=== PATIENT | female | born 1980 | race Caucasian/White ===

== ENCOUNTER 2016-04-17 12:28 | Inpatient (IN) | payer BC, OTHER ==
[2016-04-17] MEDS ORDERED: METHYLERGONOVINE 0.2 MG/ML 1 ML AMP IM PRN (12:52)
[2016-04-17] MEDS ORDERED: TERBUTALINE 1 MG/ML VIAL SQ PRN (12:52)
[2016-04-17] MEDS ORDERED: OXYTOCIN 10 UNIT/ML 1 ML VIAL IM PRN (12:52)
[2016-04-17] MEDS ORDERED: LIDOCAINE 1% (PF) 10 MG/ML (30 ML SDV) SQ PRN (12:52)
[2016-04-17] MEDS ORDERED: CARBOPROST TROMETHAMINE 250 MCG/ML 1 ML AMP IM PRN (12:52)
[2016-04-17] MEDS ORDERED: AMPICILLIN 2,000 MG in SODIUM CHLORIDE 0.9% 100 ML IVPB STA (12:52)
[2016-04-17 13:16] VITALS: BMI 29.6
[2016-04-17] MEDS: LACTATED RINGERS 1,000 ML IV SCH ×2 (13:18→14:05)
[2016-04-17 13:29] LABS: Anisocytosis Slight; Basophils # (A) 0.1 k/uL (0-0.2); Basophils % (A) 1 %; CH 19.8; CHCM 30.4; Eosinophils # (A) 0.1 k/uL (0-0.7); Eosinophils % (A) 1 %; HCT 29.1 % (34.0-46.0); HDW 4.19; HGB 8.6 gm/dL (11.4-16.0); Hypochromasia Marked; Luc # (Auto) 0.18; Luc % (Auto) 2; Lymphocytes # (A) 1.1 k/uL (1.0-4.8); Lymphocytes % (A) 14 %; MCH 19.5 pg (25.0-35.0); MCHC 29.6 g/dL (31.0-37.0); Microcytosis Marked; Monocytes # (A) 0.6 k/uL (0-1.0); Monocytes % (A) 8 %; Neutrophils # (A) 5.8 k/uL (1.3-7.7); Neutrophils % (A) 74 %; Poikilocytosis Moderate; RBC 4.43 m/uL (3.80-5.40); RDW 17.7 % (11.5-15.5); WBC 7.8 k/uL (3.8-10.6); WBC (Perox) 7.76
[2016-04-17 13:46] LABS: MCV 65.8 fL (80.0-100.0)
[2016-04-17] MEDS ORDERED: fentaNYL (PF) 50 MCG/ML 5 ML AMP ONE (14:08)
[2016-04-17] MEDS ORDERED: BUPIVACAINE (PF) 0.25% 30 ML VIAL ONE (14:08)
[2016-04-17] MEDS ORDERED: SODIUM CHLORIDE 0.9% 100 ML BAG ONE (14:08)
[2016-04-17] MEDS ORDERED: HYDROCORTISONE 2.5% RECTAL CREAM 30 GM TUBE RECTAL PRN (15:09)
[2016-04-17] MEDS ORDERED: SIMETHICONE 80 MG CHEWABLE PO PRN (15:09)
[2016-04-17] MEDS ORDERED: diphenhydrAMINE 50 MG CAP PO PRN (15:09)
[2016-04-17] MEDS ORDERED: diphenhydrAMINE 25 MG CAP PO PRN (15:09)
[2016-04-17] MEDS ORDERED: ACETAMINOPHEN TAB 325 MG TAB PO PRN (15:09)
[2016-04-17] MEDS ORDERED: ZOLPIDEM 5 MG TAB PO PRN (15:09)
[2016-04-17] MEDS ORDERED: BENZOCAINE/MENTHOL SPRAY 1 GM/SPRAY AEROSOL TOPICAL PRN (15:09)
[2016-04-17] MEDS ORDERED: diphenhydrAMINE 50 MG/ML 1 ML VIAL IVP PRN ×2 (15:09)
[2016-04-17] MEDS ORDERED: WITCH HAZEL 1 EACH MED..PAD TOPICAL PRN (15:09)
[2016-04-17] MEDS: OXYTOCIN 30 UNITS/500 ML NS 30 UNIT in SALINE 1 500ML.BAG IV SCH (15:55)
[2016-04-17] MEDS ORDERED: BUPIVACAINE (PF) 0.25% 25 ML, fentaNYL (PF) 200 MCG in SODIUM CHLORIDE 0.9% 71 ML EPIDURAL ONE (16:01)
--- NOTE | 2016-04-17 17:17 | P.HPOB ---
History of Present Illness H&P Date: 04/17/16 Chief Complaint: Intrauterine at term Patient is a 35-year-old at 38 weeks gestation arise in active labor. She is vahid every 2-3 minutes and dilated to 6 cm. Her course otherwise was unremarkable. She did fail her 1 hour Glucola screen but did pass her 3 hour. heart tones are noted to be in the 140s and reactive QUESTIONS are answered for her. She is positive for GBS and prophylaxis has been initiated. Pertinent labs include A+ blood type and Rh antibody screen was negative. Rubella is immune hepatitis B surface antigen and RPR were negative. Past Medical History Past Medical History: No Reported History History of Any Multi-Drug Resistant Organisms: None Reported Past Surgical History: No Surgical Hx Reported Additional Past Surgical History / Comment(s): rt arm broken when 7 y.o. Past Anesthesia/Blood Transfusion Reactions: No Reported Reaction Past Psychological History: No Psychological Hx Reported Smoking Status: Never smoker Past Drug Use History: None Reported - Past Family History Mother History Unknown: Yes Family Medical History: Hypertension Medications and Allergies Home Medications Medication Instructions Recorded Confirmed Type Pnv with Ca,No.72/Iron/FA 1 tab PO DAILY 04/17/16 04/17/16 History [ Plus Tablet] Allergies Allergy/AdvReac Type Severity Reaction Status Date / Time magnesium Allergy Anaphylaxis Verified 04/17/16 12:49 Exam Osteopathic Statement: *. No significant issues noted on an osteopathic structural exam other than those noted in the History and Physical/Consult. - Vital Signs Vital signs: Vital Signs Temp Pulse Resp BP 04/17/16 16:20 90 18 111/78 04/17/16 15:51 85 16 104/57 04/17/16 15:36 96 16 106/60 04/17/16 15:21 99 16 100/59 04/17/16 15:06 117 H 18 115/54 04/17/16 14:51 97.0 F L 114 H 18 119/56 04/17/16 13:00 97.1 F L 112 H 18 118/79 Intake and Output 04/17/16 04/17/16 04/17/16 06:59 14:59 22:59 Intake Total 1999 Balance 1999 Intake: IV 1500 Lactated Ringers 1,000 ml 1500 @ 125 mls/hr IV .Q8H SAYRA Rx#:[id number] Intake, IV Titration 500 Amount Oxytocin 30 Units/500 ml 500 Ns 30 unit In Saline 1 500ml.bag @ 120 MILLIUNIT /MIN 120 mls/hr IV . Q4H10M SAYRA Rx#:[id number] Other: # Voids 0 # Bowel Movements 0 Weight 71.214 kg Patient Weight 04/18/16 06:59 Weight 71.214 kg - OBG Physical Exam Breast: both: normal (no masses) Abdomen: bowel sounds normal, no diffuse tenderness, no bruit present, no guarding noted, no hepatomegaly, no splenomegaly, no mass Vulva: both: normal Vagina: normal moisture, no discharge Cervix: no lesion, no discharge Uterus: normal size, normal contour Adnexa: both: normal Anus/Rectum: normal perianal skin, no rectal mass, no hemorrhoids, heme negative Results Result Diagrams: 04/17/16 13:00 Abnormal Lab Results - Last 24 Hours (Table) 04/17/16 Range/Units 13:00 Hgb 8.6 L (11.4-16.0) gm/dL Hct 29.1 L (34.0-46.0) % MCV 65.8 L D (80.0-100.0) fL MCH 19.5 L (25.0-35.0) pg MCHC 29.6 L (31.0-37.0) g/dL RDW 17.7 H (11.5-15.5) %
--- NOTE | 2016-04-17 17:18 | P.PROBDLV ---
Vaginal Delivery Note - . Vaginal Delivery Note: Patient progressed complete and pushing with spontaneous vaginal delivery of a viable male over an intact perineum. Following delivery of the head from left occiput anterior position anterior posterior shoulders were delivered gentle downward upper traction followed by the remainder the baby. Mouth nares were then bulb suctioned and baby was placed on mother's abdomen where the umbilical cord was clamped and cut in usual fashion. Placenta was then delivered intact Pitocin was added to the IV. scores were 8 and 9 at one and 5 minutes respectively and the weight was 8 lbs. 5 oz. Following delivery both mother and baby appear stable.
[2016-04-17] MEDS: AMPICILLIN 1,000 MG in SODIUM CHLORIDE 0.9% 50 ML IVPB SCH (17:31)
[2016-04-17] MEDS: SENNOSIDES-DOCUSATE SODIUM 1 EACH TAB PO SCH (20:09)
[2016-04-18] MEDS: IBUPROFEN 600 MG TAB PO PRN ×2 (06:07→12:38)
[2016-04-18 08:27] LABS: Anisocytosis Slight; Basophils % (A) 0 %; CH 19.2; CHCM 28.5; Eosinophils # (A) 0.1 k/uL (0-0.7); Eosinophils % (A) 1 %; HCT 26.7 % (34.0-46.0); HDW 3.92; HGB 7.8 gm/dL (11.4-16.0); Hypochromasia Marked; Luc # (Auto) 0.22; Luc % (Auto) 2; Lymphocytes # (A) 1.1 k/uL (1.0-4.8); Lymphocytes % (A) 11 %; MCH 19.9 pg (25.0-35.0); MCHC 29.2 g/dL (31.0-37.0); MCV 68.1 fL (80.0-100.0); Mean Platelet Volume 6.7; Microcytosis Marked; Monocytes # (A) 0.6 k/uL (0-1.0); Monocytes % (A) 6 %; Neutrophils # (A) 8.2 k/uL (1.3-7.7); Neutrophils % (A) 80 %; Poikilocytosis Slight; RBC 3.92 m/uL (3.80-5.40); RDW 17.2 % (11.5-15.5); WBC 10.1 k/uL (3.8-10.6); WBC (Perox) 10.63
--- NOTE | 2016-04-18 08:53 | P.PNOBGVD ---
Subjective - Subjective Principal diagnosis: day 1 Interval history: Overall doing very well. She is ambulating, voiding, and tolerating her diet. Patient reports: Reports appetite normal, Reports voiding normally, Reports pain well controlled, Reports ambulating normally : doing well Objective - Latest Vital Signs Latest vital signs: Vital Signs Temp Pulse Resp BP 04/18/16 00:00 98.2 F 91 16 121/75 04/17/16 20:00 98.2 F 102 H 16 123/69 04/17/16 16:51 97.5 F L 86 16 107/64 04/17/16 16:20 90 18 111/78 04/17/16 15:51 85 16 104/57 04/17/16 15:36 96 16 106/60 04/17/16 15:21 99 16 100/59 04/17/16 15:06 117 H 18 115/54 04/17/16 14:51 97.0 F L 114 H 18 119/56 04/17/16 13:00 97.1 F L 112 H 18 118/79 Intake and Output 04/17/16 04/18/16 04/18/16 22:59 06:59 14:59 Intake Total 1999 Balance 1999 Intake: IV 1500 Lactated Ringers 1,000 ml 1500 @ 125 mls/hr IV .Q8H SAYRA Rx#:[id number] Intake, IV Titration 500 Amount Oxytocin 30 Units/500 ml 500 Ns 30 unit In Saline 1 500ml.bag @ 120 MILLIUNIT /MIN 120 mls/hr IV . Q4H10M SAYRA Rx#:[id number] Other: # Voids 1 2 1 # Bowel Movements 0 - Exam Lungs: bilateral: normal Chest: Normal S1, Normal S2 Extremities: Present: normal Abdomen: Present: normal appearance, soft Uterus: Present: normal, firm - Labs Labs: Abnormal Lab Results - Last 24 Hours (Table) 04/17/16 04/18/16 Range/Units 13:00 07:58 Hgb 8.6 L 7.8 L (11.4-16.0) gm/dL Hct 29.1 L 26.7 L (34.0-46.0) % MCV 65.8 L D 68.1 L (80.0-100.0) fL MCH 19.5 L 19.9 L (25.0-35.0) pg MCHC 29.6 L 29.2 L (31.0-37.0) g/dL RDW 17.7 H 17.2 H (11.5-15.5) % Neutrophils # 8.2 H (1.3-7.7) k/uL
[2016-04-18] MEDS: SENNOSIDES-DOCUSATE SODIUM 1 EACH TAB PO SCH (12:39)
[2016-04-18] MEDS: LACTATED RINGERS 1,000 ML IV SCH (19:39)
[2016-04-18] MEDS: OXYTOCIN 30 UNITS/500 ML NS 30 UNIT in SALINE 1 500ML.BAG IV SCH ×2 (19:39→19:40)
[2016-04-18] MEDS: AMPICILLIN 1,000 MG in SODIUM CHLORIDE 0.9% 50 ML IVPB SCH (19:39)
[2016-04-19] MEDS: IBUPROFEN 600 MG TAB PO PRN ×2 (00:09→13:18)
[2016-04-19] MEDS: SENNOSIDES-DOCUSATE SODIUM 1 EACH TAB PO SCH ×2 (00:09→08:20)
[2016-04-19 08:20] VITALS: BP 103/61; PULSE 83; RESP 16; TEMP 98.2
--- NOTE | 2016-04-19 08:55 | P.DS ---
Providers Date of admission: 04/17/16 12:46 Expected date of discharge: 04/19/16 Attending physician: Vance Recinos [facility] Course: Patient is doing very well day 2. She is ambulating, voiding and she is tolerating her diet. She voices no complaint. Vital signs are stable and afebrile. Heart regular, lungs clear, extremities without pain. Abdomen is soft uterus is firm below the umbilicus and lochia is reported be light. Assessment postop day 2. Plan discharged home follow me in 6 weeks. Today's discharge instructions were all reviewed and all questions are answered for her prior to her discharge she is stable for discharge this time. A prescription for Motrin has been provided Patient Condition at Discharge: Good Plan - Discharge Summary New Discharge Prescriptions: Ibuprofen [Motrin] 600 mg PO Q6HR PRN #30 tab PRN Reason: Pain Discharge Medication List Pnv with Ca,No.72/Iron/FA [ Plus Tablet] 1 tab PO DAILY 04/17/16 [ History] Ibuprofen [Motrin] 600 mg PO Q6HR PRN #30 tab 04/19/16 [Rx] Follow up Appointment(s)/Referral(s): Vance Recinos DO [Doctor of Osteopathic Medicine] - 6 Weeks Activity/Diet/Wound Care/Special Instructions: No heavy lifting limited stairs and driving and pelvic rest. If any high temperatures, heavy bleeding, or severe pain call my office Discharge Disposition: HOME SELF-CARE
== END 2016-04-19 14:00 | disposition home or self-care (01) | DRG 775 ==
LOC: FBPOP 12:28 → 4FBP 12:46
PROVIDERS: ADMIT Obstetrics & Gynecology; ATTEND Obstetrics & Gynecology
PROC: 10E0XZZ Delivery of Products of Conception, External Approach (ICD-10-PCS; principal; 2016-04-17)
DX: O99.824 Streptococcus B carrier state complicating childbirth (principal); Z37.0 Single live birth; Z3A.38 38 weeks gestation of pregnancy; Z79.899 Other long term (current) drug therapy
CPT/HCPCS: 85025; 88307

== ENCOUNTER 2019-12-15 18:02 | Emergency (ER) | payer BC, OTHER ==
--- NOTE | 2019-12-15 19:24 | XR ---
EXAMINATION TYPE: XR wrist complete RT DATE OF EXAM: 12/15/2019 COMPARISON: NONE HISTORY: Pain TECHNIQUE: 4 views FINDINGS: Carpal bones are intact. Metacarpals appear intact. I see no fracture nor dislocation. Join t spaces are normal. Scaphoid appears normal. IMPRESSION: Negative right wrist exam. No fracture.
--- NOTE | 2019-12-15 19:42 | ED ---
Upper Extremity HPI - General Chief Complaint: Extremity Injury, Upper Stated Complaint: fall from 1 step, 24wks preg Time Seen by Provider: 12/15/19 18:19 Source: patient Mode of arrival: ambulatory Limitations: no limitations - History of Present Illness Initial Comments: 3-year-old female presents the ER today for complaints of left wrist pain. Renay ent reports she tripped down one step and landed with her wrist hitting her daughter's bike at the end of the step. Patient complains of swelling and pain over the distal ulna. She states that she has no other injury. She is also 24 weeks and this seventh child. She reports that she had no abdominal trauma feels the baby moving. No vaginal bleeding or fluid discharge. - Related Data Home Medications Medication Instructions Recorded Confirmed Pnv,Calcium 72/Iron/Folic Acid 1 tab PO DAILY 04/17/16 04/17/16 [ Plus Tablet] Previous Rx's Medication Instructions Recorded Ibuprofen [Motrin] 600 mg PO Q6HR PRN #30 tab 04/19/16 Allergies Allergy/AdvReac Type Severity Reaction Status Date / Time magnesium Allergy Anaphylaxis Verified 12/15/19 18:14 Review of Systems ROS Statement: Those systems with pertinent positive or pertinent negative responses have been documented in the HPI. ROS Other: All systems not noted in ROS Statement are negative. Past Medical History Past Medical History: No Reported History History of Any Multi-Drug Resistant Organisms: None Reported Past Surgical History: Orthopedic Surgery Additional Past Surgical History / Comment(s): rt arm broken when 7 y.o. Past Anesthesia/Blood Transfusion Reactions: No Reported Reaction Past Psychological History: No Psychological Hx Reported Smoking Status: Never smoker Past Alcohol Use History: None Reported Past Drug Use History: None Reported - Past Family History Mother History Unknown: Yes Family Medical History: Hypertension General Exam - General Exam Comments Initial Comments: 39-year-old female. Alert and oriented. No distress. Limitations: no limitations General appearance: alert, in no apparent distress Head exam: Present: atraumatic Eye exam: Present: normal appearance, PERRL, EOMI. Absent: scleral icterus, conjunctival injection, periorbital swelling ENT exam: Present: normal exam, mucous membranes moist Neck exam: Present: normal inspection. Absent: tenderness, meningismus, lymphadenopathy Respiratory exam: Present: normal lung sounds bilaterally. Absent: respiratory distress, wheezes, rales, rhonchi, stridor Cardiovascular Exam: Present: regular rate, normal rhythm, normal heart sounds. Absent: systolic murmur, diastolic murmur, rubs, gallop, clicks GI/Abdominal exam: Present: soft, normal bowel sounds, other (Set of abdomen consistent with 24 weeks .). Absent: distended, tenderness, guarding, rebound, rigid Left Elbow exam: Present: normal inspection, full ROM Forearm Wrist exam: Present: full ROM, tenderness, swelling, other (Patient is swelling over the distal ulna. She does have full range of motion. Radial pulses 2+. Capillary refills less than 2 seconds. Normal sensation to light touch over hand and wrist.). Absent: normal inspection Neuro motor exam: Present: wrist extension intact, thumb opposition intact, thumb IP flexion intact, thumb adduction intact, fingers 2-5 abduction intact Vascular: Present: normal capillary refill Back exam: Present: normal inspection Neurological exam: Present: alert, oriented X3, CN II-XII intact Psychiatric exam: Present: normal affect, normal mood Skin exam: Present: warm, dry, intact, normal color. Absent: rash Course Vital Signs 12/15/19 12/15/19 18:11 20:10 Temperature 98.5 F 97.8 F Pulse Rate 99 76 Respiratory 18 12 Rate Blood Pressure 119/76 113/70 O2 Sat by Pulse 100 98 Oximetry Procedures - Orthopedic Splinting/Casting Injury #1 Side: right Upper Extremity Injury Location: wrist Upper Extremity Immobilizer: ulnar gutter, Mina wrap, synthetic pre-padded splint Medical Decision Making - Medical Decision Making 3-year-old female presents with left wrist pain after falling down one step. She'll 24 weeks but denies any abdominal pain vaginal bleeding and feels baby moving well. Patient's wrist x-ray was reviewed negative for fracture. She does have swelling over the distal ulna. No snuffbox tenderness. Patient was placed in an ulnar gutter splint to help with immobilization. I discussed that she can follow-up with orthopedic symptoms to persist but to remain in splint for a few days and take it off to reassess patient's pain. Patient is agreeable to plan will comply. Return parameters were discussed. - Radiology Data Radiology results: report reviewed Negative right wrist exam. No fracture. Disposition Clinical Impression: Wrist sprain Disposition: HOME SELF-CARE Condition: Good Instructions (If sedation given, give patient instructions): Wrist Injury (ED) Additional Instructions: Patient is a rest ice and elevate the wrist. Patient to follow up with orthopedics if symptoms continue to persist after a few days of Tylenol for pain and remaining in the splint. Return to the ED if any alarming signs or symptom s occur. Is patient prescribed a controlled substance at d/c from ED?: No Referrals: Denzel Vigil MD [Primary Care Provider] - 1-2 days Damien Sparks DO [Doctor of Osteopathic Medicine] - 1-2 days Time of Disposition: 19:42
[2019-12-15 20:12] VITALS: BP 113/70; PULSE 76; RESP 12; TEMP 97.8
== END 2019-12-15 20:19 | disposition home or self-care (01) ==
LOC: EC 18:02
DX: O9A.212 Injury, poisoning and certain other consequences of external causes complicating pregnancy, second trimester (principal); S63.502A Unspecified sprain of left wrist, initial encounter; Z3A.24 24 weeks gestation of pregnancy; Z88.8 Allergy status to other drugs, medicaments and biological substances; W10.8XXA Fall (on) (from) other stairs and steps, initial encounter; Y92.89 Other specified places as the place of occurrence of the external cause
CPT/HCPCS: 99283

== ENCOUNTER 2020-01-31 17:44 | Outpatient (CLI) | payer BC, OTHER ==
--- NOTE | 2020-01-31 19:04 | US ---
EXAMINATION TYPE: US OB >= 14 wk fetus DATE OF EXAM: 01/31/2020 COMPARISON: None CLINICAL HISTORY: decreased movement, unable to detect tones TECHNIQUE: Transabdominal (TA) GESTATIONAL AGE / DATING Physician Established: (31 weeks/3 days) EDC: 03/31/2020 Dates by LMP: (31 weeks/3 days) EDC: 03/31/2020 Dates by First Scan: No previous this is first scan Dates by Current Scan: (31 weeks/2 days) SURVEY IUP: Single PLACENTA: Anterior PREVIA: No Previa AUGUSTINA: 16.4 cm Normal CERVICAL LENGTH (transabdominal: norm > 3.0cm): 4.3 cm BIOMETRY PRESENTATION: Breech BPD: 7.9 cm 31 weeks / 6 days HC: 28.9 cm 30 weeks / 4 days AC: 27.8 cm 31 weeks / 6 days FL: 6.3 cm 32 weeks / 3 days ESTIMATED WEIGHT IN GRAMS: 1856 grams ESTIMATED WEIGHT IN LBS/OZ: 4 lbs. 1 oz. WEIGHT PERCENTAGE BASED ON ESTABLISHED DATES: 53% HC/AC: 1.0 Normal FL/AC: 22.5 Normal HEART RATE: not detected bpm RHYTHM: not detected No heart tones detected. IMPRESSION: There is intrauterine demise at approximately 31 weeks gestation.
[2020-01-31 19:14] VITALS: BP 113/70; PULSE 125; RESP 17; TEMP 97.5
--- NOTE | 2020-01-31 19:30 | P.MSEPDOC ---
Presenting Problems - Arrival Data Date of Arrival on Unit: 01/31/20 Time of Arrival on Unit: 17:44 Mode of Transport: Ambulatory - Complaint OB-Reason for Admission/Chief Complaint: Decreased Movement Comment: pt reports movement last at 1100 today, reports hx of anemia with and is scheduled for iron infusion 02-02 Medical History - Information : 7 Para: 6 Term: 6 : 0 Abortions: Spontaneous or Elective: 0 Number of Living Children: 6 - Gestational Age Gestational Age by CHUCHO (wks/days): 31 Weeks and 3 Days Review of Systems - Review of Systems Constitutional: No problems Breast: No problems ENT: No problems Cardiovascular: No problems Respiratory: No problems Gastrointestinal: No problems Genitourinary: No problems Musculoskeletal: No problems Neurological: No problems Skin: No problems Vital Signs - Temperature Temperature: 97.5 F Temperature Source: Temporal Artery Scan - Pulse Right Brachial Pulse Rate: 125 Pulse Assessment Method: Automatic Cuff - Respirations Respiratory Rate: 17 Oxygen Delivery Method: Room Air - Blood Pressure Right Arm Blood Pressure: 113/70 Blood Pressure Mean: 84 Blood Pressure Source: Automatic Cuff Medical Screen Scoring (Pre) - Cervical Exam Dilation: Exam Deferred Effacement: Exam Deferred Membranes: Intact - Uterine Contractions Frequency: N/A Duration: N/A Intensity: N/A - Maternal Vital Signs Maternal Temperature: N/A Maternal Blood Pressure: N/A Signs of Preeclampsia: N/A Maternal Respirations: N/A - Maternal Trauma Maternal Trauma: N/A - Assessment - Baby A NST: Unable to detect FHT's = 10 - Total Score - Baby A Total Score - Baby A: 10 - Total Score - Baby B Total Score - Baby B: 0 - Total Score - Baby C Total Score - Baby C: 0 - Level of Risk - Baby A Level of Risk - Baby A: High (10+) - Level of Risk - Baby B Level of Risk - Baby B: Low (0-5) - Level of Risk - Baby C Level of Risk - Baby C: Low (0-5) Physician Notification (Pre) - Physician Notified Physician Notified Date: 01/31/20 Physician Notified Time: 18:08 New Order Received: Yes (stat u/s) - Notification Comment Comment: Dr Lay on way into to assess pt Disposition - Disposition OB Disposition: Observe, Triage I agree with the RN Medical Screening Exam: Yes Risk & Benefit of care provided described in d/c instruction: Yes Diagnosis: MATERNAL CARE FOR INTRAUTERINE , FETUS 1 (Patient called me with complaints of decreased movement. Patient was instructed to come to labor and delivery for evaluation. Patient is a pleasant 39-year-old 7 para 6 female 31-1/2 weeks gestation. has been complicated by severe anemia for which she is seen a car icer. Evaluation of labor and delivery was consistent with an intrauterine demise at 31 weeks. Discussed delivery at this time versus coming back tomorrow on proceeding with induction. Patient wishes to go home today with her family this evening and tomorrow and return tomorrow night for Cervidil placement. I did instruct her to call me if she had any vaginal bleeding or concerns.)
== END 2020-01-31 19:28 | disposition home or self-care (01) ==
LOC: FBPOP 17:44
PROVIDERS: ATTEND Obstetrics & Gynecology
DX: O36.4XX0 Maternal care for intrauterine death, not applicable or unspecified (principal); Z3A.31 31 weeks gestation of pregnancy
CPT/HCPCS: 76805; 99213

== ENCOUNTER 2020-02-01 06:47 | Inpatient (IN) | payer BC, OTHER ==
--- NOTE | 2020-02-01 07:58 | P.HPOB ---
History of Present Illness H&P Date: 02/01/20 Chief Complaint: demise. This patient is a pleasant 39-year-old 7 para 6 female estimated date of confinement 03/31/2020 estimated gestational age 31-4/7 weeks initially called me yesterday evening with complaints of decreased movement. Patient was directed to labor and delivery and evaluation here has shown a intrauterine demise consistent with gestational age. I did have a long discussion last evening with the patient and her about the possible etiologies and plan for delivery. Patient's cervix is not dilated. Patient does have quite a large family and she requested to go home and come back today for induction of labor. Patient's care is per Dr. Recinos. care is complicated by severe anemia and she has been referred to hematology and was scheduled for an iron infusion sometime this week. Patient states that she's had some mild anemia in the past but never this severe. It does appear to be iron deficient in etiology. Patient is advanced for maternal age and was counseled on genetic testing earlier in the however did decline at that time. She also did have an abnormal Glucola with a normal three-hour glucose testing. Previous pregnancies have been uncomplicated. Past medical history is unremarkable. Review of Systems Constitutional: Reports as per HPI Genitourinary: Reports Menstruation: Reports amenorrhea Past Medical History Past Medical History: No Reported History Additional Past Medical History / Comment(s): Severe anemia; Patient has had 6 previous vaginal deliveries History of Any Multi-Drug Resistant Organisms: None Reported Past Surgical History: No Surgical Hx Reported, Orthopedic Surgery Additional Past Surgical History / Comment(s): rt arm broken when 7 y.o. Past Anesthesia/Blood Transfusion Reactions: No Reported Reaction Past Psychological History: No Psychological Hx Reported Smoking Status: Never smoker Past Alcohol Use History: None Reported Past Drug Use History: None Reported - Past Family History Mother History Unknown: Yes Family Medical History: Hypertension Medications and Allergies Home Medications Medication Instructions Recorded Confirmed Type Pnv,Calcium 72/Iron/Folic Acid 1 tab PO DAILY 04/17/16 04/17/16 History [ Plus Tablet] Ibuprofen [Motrin] 600 mg PO Q6HR PRN #30 tab 04/19/16 Rx Allergies Allergy/AdvReac Type Severity Reaction Status Date / Time magnesium Allergy Anaphylaxis Verified 01/31/20 18:00 Exam - OBG Physical Exam Abdomen: bowel sounds normal, no diffuse tenderness, no bruit present, no guarding noted, no hepatomegaly, no splenomegaly, no mass Vulva: both: normal Vagina: normal moisture, no discharge Cervix: no lesion (Cervix is closed but soft), no discharge Uterus: enlarged (Fundal height consistent with gestational age) Results blood work shows she is A positive, rubella immune, hepatitis B negative, RPR is nonreactive, toxoplasmosis negative, Glucola was 156 with a normal three-hour gtt., anatomy ultrasound done that 20 weeks and did not show any abnormalities Assessment and Plan Assessment: This is a pleasant 39-year-old 7 para 6 female 31-4/7 weeks gestation with known demise of unknown etiology who is presenting for delivery. Due to unfavorable cervix plan is Cervidil placement for induction of labor. Patient also has severe anemia. I did have a long discussion with the patient and her about possible etiologies of her demise and she understands that certainly given her age she is at increased risk of genetic abnormalities. She also understands there could be various other reasons for this including a cord accident, infectious disease, or thromboembolic disorder. She also understands unfortunately large percentage of these cases are unknown. I did recommend testing, including TORCH studies, thyroid testing, lupus anticoagulant and anticardiolipin antibodies, beta 2 glycoprotein, Kleihauer-Betke, and chromosomal studies. Given the fact that she has no significant past medical or past obstetrical history, there is a good chance we will not have a particular cause of this unless there is a cord accident or genetic disorder. I also discussed patient's severe anemia and the fact that she is unfortunately at increased risk of bleeding due to her being multipara. She is at increased risk of blood transfusion. The patient and I also discussed the fact that she is breech and that sometimes there can be head entrapment at the time of delivery however in her instance it is certainly recommended that she proceed with vaginal delivery, given her severe anemia. She is completely agreeable to this. Plan is two-stage induction of labor and anticipate vaginal delivery. (1) 31 to 32 weeks gestation of Status: Acute Code(s): GJA4913 - SNOMED Code(s): 539660583 (2) demise Status: Acute Code(s): JQY7991 - SNOMED Code(s): 236116020 (3) Severe anemia Status: Acute Code(s): D64.9 - ANEMIA, UNSPECIFIED SNOMED Code(s): 051808694 (4) Elderly multigravida Status: Acute Code(s): O09.529 - SUPERVISION OF ELDERLY MULTIGRAVIDA, UNSPECIFIED TRIMESTER SNOMED Code(s): 073517354
[2020-02-01] MEDS ORDERED: BUTORPHANOL 1 MG/ML 1 ML VIAL IV PRN (17:59)
[2020-02-01] MEDS ORDERED: DINOPROSTONE 10 MG INSERT.ER VAGINAL ONE (17:59)
[2020-02-01] MEDS ORDERED: ZOLPIDEM 5 MG TAB PO PRN (17:59)
--- NOTE | 2020-02-01 18:35 | P.PN ---
Progress Note - Text Progress Note Date: 02/01/20 Cervidil was placed and cervix closed and thick. I discussed once again with the patient and her process of induction and delivery. All questions are answered.
[2020-02-01 20:13] LABS: Anisocytosis Slight; Basophils # (A) 0.1 k/uL (0-0.2); Basophils % (A) 1 %; Eosinophils # (A) 0.3 k/uL (0-0.7); Eosinophils % (A) 3 %; HCT 23.4 % (34.0-46.0); HGB 7.1 gm/dL (11.4-16.0); Hypochromasia Marked; Lymphocytes # (A) 1.1 k/uL (1.0-4.8); Lymphocytes % (A) 11 %; MCH 19.8 pg (25.0-35.0); MCHC 30.6 g/dL (31.0-37.0); MCV 64.7 fL (80.0-100.0); Mean Platelet Volume 6.6; Microcytosis Marked; Monocytes # (A) 0.6 k/uL (0-1.0); Monocytes % (A) 6 %; Neutrophils % (A) 79 %; Platelet Count 368 k/uL (150-450); Poikilocytosis Moderate; RBC 3.61 m/uL (3.80-5.40); RDW 16.6 % (11.5-15.5); WBC 10.1 k/uL (3.8-10.6)
[2020-02-01 20:29] LABS: Polychromasia Present; Target Cells Present
[2020-02-01] MEDS ORDERED: TERBUTALINE 1 MG/ML VIAL SQ PRN (20:46)
[2020-02-01] MEDS ORDERED: METHYLERGONOVINE 0.2 MG/ML 1 ML AMP IM PRN (20:46)
[2020-02-01] MEDS ORDERED: OXYTOCIN 10 UNIT/ML 1 ML VIAL IM PRN (20:46)
[2020-02-01] MEDS ORDERED: CARBOPROST TROMETHAMINE 250 MCG/ML 1 ML AMP IM PRN (20:46)
[2020-02-01] MEDS ORDERED: LIDOCAINE 0.5% (PF) 5 MG/ML (50 ML SDV) SQ PRN (20:46)
[2020-02-01] MEDS ORDERED: OXYTOCIN 30 UNITS/500 ML NS 30 UNIT in SALINE 1 500ML.BAG IV SCH (20:46)
[2020-02-01] MEDS: LACTATED RINGERS 1,000 ML IV SCH (20:50)
[2020-02-02] MEDS: LACTATED RINGERS 1,000 ML IV SCH ×2 (06:03→07:27)
[2020-02-02 11:10] VITALS: RESP 15
[2020-02-02] MEDS ORDERED: BENZOCAINE/MENTHOL SPRAY 1 GM/SPRAY AEROSOL TOPICAL PRN (11:12)
[2020-02-02] MEDS ORDERED: IBUPROFEN 600 MG TAB PO PRN (11:12)
[2020-02-02] MEDS ORDERED: diphenhydrAMINE 50 MG CAP PO PRN (11:12)
[2020-02-02] MEDS ORDERED: diphenhydrAMINE 25 MG CAP PO PRN (11:12)
[2020-02-02] MEDS ORDERED: diphenhydrAMINE 50 MG/ML 1 ML VIAL IVP PRN ×2 (11:12)
[2020-02-02] MEDS ORDERED: SIMETHICONE 80 MG CHEWABLE PO PRN (11:12)
[2020-02-02] MEDS ORDERED: HYDROCORTISONE 2.5% RECTAL CREAM 30 GM TUBE RECTAL PRN (11:12)
[2020-02-02] MEDS ORDERED: LANOLIN CREAM 5 GM TUBE TOPICAL PRN (11:12)
[2020-02-02] MEDS ORDERED: ACETAMINOPHEN TAB 325 MG TAB PO PRN (11:12)
[2020-02-02] MEDS ORDERED: OXYTOCIN 20 UNITS/1000 ML NS 1,000 ML IV SCH (11:15)
--- NOTE | 2020-02-02 12:09 | P.PROBDLV ---
Vaginal Delivery Note - . Vaginal Delivery Note: Breast complete and pushing with spontaneous vaginal delivery of a non-viable female over an intact perineum from breech presentation. Once baby was fully delivered, a nuchal cord 1 was noted. It was very tight and I was unable to even reduce it. The cord was therefore clamped and cut. Baby was then placed on mother's abdomen and father her daughter present at bedside. Placenta was then delivered intact and Pitocin added to the IV due to her severe anemia. She seems stable following delivery.
[2020-02-02 12:12] VITALS: TEMP 98
[2020-02-02 13:00] LABS: Cardiolipin Ab IgG Interp NEGATIVE (NEGATIVE); Cardiolipin Ab IgM Interp NEGATIVE (NEGATIVE); Cardiolipin IgA Antibody <0.5 U/mL; Cardiolipin IgM Antibody <0.2 U/mL
--- NOTE | 2020-02-02 16:04 | P.DS ---
Providers Date of admission: 02/01/20 17:56 Expected date of discharge: 02/02/20 Attending physician: Vance Recinos Primary care physician: Stated None Hospital Course: Patient is doing well this afternoon day 0. She delivered a nonviable baby earlier this afternoon and is requesting discharge to home. Prescription for Motrin was for her to her pharmacy. Her bleeding is very light and she feels well enough to go home. She will continue to take her iron infusion as prescribed as precaution. All the questions are answered for her at this time. She'll follow up me in 1 week. Discharge instructions were otherwise thoroughly reviewed and all questions are answered for her. Patient Condition at Discharge: Good Plan - Discharge Summary New Discharge Prescriptions: New Ibuprofen [Motrin] 600 mg PO Q6HR PRN #30 tab PRN Reason: Pain No Action Pnv,Calcium 72/Iron/Folic Acid [ Plus Tablet] 1 tab PO DAILY Ibuprofen [Motrin] 600 mg PO Q6HR PRN #30 tab PRN Reason: Pain Discharge Medication List Pnv,Calcium 72/Iron/Folic Acid [ Plus Tablet] 1 tab PO DAILY 04/17/16 [History] Ibuprofen [Motrin] 600 mg PO Q6HR PRN #30 tab 04/19/16 [Rx] Ibuprofen [Motrin] 600 mg PO Q6HR PRN #30 tab 02/02/20 [Rx] Follow up Appointment(s)/Referral(s): Vance Recinos DO [Doctor of Osteopathic Medicine] - 1 Week Activity/Diet/Wound Care/Special Instructions: No heavy lifting , limit stairs and driving, and pelvic rest. If any high t emperatures, heavy bleeding, or severe pain call my office Discharge Disposition: HOME SELF-CARE
[2020-02-02 17:19] VITALS: BP 123/75; PULSE 100
[2020-02-02] MEDS ORDERED: SENNOSIDES-DOCUSATE SODIUM 1 EACH TAB PO SCH (20:00)
[2020-02-03 03:15] LABS: Apolipoprotein A1 172 mg/dL (125 - 215); B/A1 Ratio 1.12 Ratio (0.30 - 0.90)
[2020-02-03 04:52] LABS: Herpes simplex IgG I Ab 0.23 (< or = 0.90); Herpes simplex IgG II Ab 0.14 (< or = 0.90); Toxoplasma Antibody (IgG) <3.0 IU/mL (<7.2)
[2020-02-03 14:01] LABS: APTT 33 Sec(s) (<43); Dilute Russell Viper Venom 31 Sec(s) (<44)
[2020-02-04 05:00] LABS: Herpes simplex I and/or II IgM 0.27 INDEX (<=0.90); Toxoplasma Antibody (IgM) <3.0 AU/mL (<8.0)
== END 2020-02-02 17:05 | disposition home or self-care (01) | DRG 807 ==
LOC: 4FBP 17:56
PROVIDERS: ADMIT Obstetrics & Gynecology; ATTEND Obstetrics & Gynecology
PROC: 3E0P7VZ Introduction of Hormone into Female Reproductive, Via Natural or Artificial Opening (ICD-10-PCS; principal; 2020-02-02)
PROC: 10E0XZZ Delivery of Products of Conception, External Approach (ICD-10-PCS; principal; 2020-02-02)
DX: O36.4XX0 Maternal care for intrauterine death, not applicable or unspecified (principal); Z37.1 Single stillbirth; O32.1XX0 Maternal care for breech presentation, not applicable or unspecified; O69.1XX0 Labor and delivery complicated by cord around neck, with compression, not applicable or unspecified; Z3A.31 31 weeks gestation of pregnancy; O99.02 Anemia complicating childbirth; D64.9 Anemia, unspecified; E61.1 Iron deficiency; O99.284 Endocrine, nutritional and metabolic diseases complicating childbirth; Z82.49 Family history of ischemic heart disease and other diseases of the circulatory system; Z88.8 Allergy status to other drugs, medicaments and biological substances
CPT/HCPCS: 82172; 85025; 85613; 85730; 86147; 86644; 86645; 86694; 86695; 86696; 86762; 86777; 86778; 86850; 86900; 86901

== ENCOUNTER 2020-06-20 06:56 | Emergency (ER) | payer BC, OTHER ==
[2020-06-20 07:04] VITALS: RESP 18; TEMP 97.8
[2020-06-20] MEDS ORDERED: SODIUM CHLORIDE 0.9% 1,000 ML IV STA ×2 (07:52)
[2020-06-20] MEDS ORDERED: MORPHINE SULFATE 2 MG/ML SYRINGE IVP STA ×2 (07:52→08:13)
[2020-06-20] MEDS ORDERED: KETOROLAC 15 MG/ML 1 ML VIAL IVP STA ×2 (07:52→08:13)
[2020-06-20] MEDS ORDERED: ONDANSETRON 4 MG/2 ML VIAL IVP STA (08:04)
[2020-06-20 08:11] LABS: Basophils # (A) 0.1 k/uL (0-0.2); Basophils % (A) 1 %; Eosinophils # (A) 0.2 k/uL (0-0.7); Eosinophils % (A) 3 %; HCT 40.3 % (34.0-46.0); HGB 13.3 gm/dL (11.4-16.0); Lymphocytes # (A) 1.2 k/uL (1.0-4.8); Lymphocytes % (A) 18 %; MCH 28.1 pg (25.0-35.0); MCV 85.2 fL (80.0-100.0); Mean Platelet Volume 6.8; Monocytes # (A) 0.4 k/uL (0-1.0); Monocytes % (A) 6 %; Neutrophils # (A) 4.9 k/uL (1.3-7.7); Neutrophils % (A) 70 %; Platelet Count 280 k/uL (150-450); RBC 4.72 m/uL (3.80-5.40); RDW 12.7 % (11.5-15.5)
--- NOTE | 2020-06-20 08:14 | ED ---
Abdominal Pain HPI - General Chief Complaint: Abdominal Pain Stated Complaint: Abd Pain Time Seen by Provider: 06/20/20 07:36 Source: patient, RN notes reviewed Mode of arrival: ambulatory Limitations: no limitations - History of Present Illness Initial Comments: 39-year-old female presents returned today with periumbilical abdominal pain starting early this morning. Patient states that her symptoms started today and seemed be worse with movement. Patient states that she's had no change in bowel habits. She reports that she's had no fevers or chills. - Related Data Previous Rx's Medication Instructions Recorded Ibuprofen [Motrin] 600 mg PO Q8HR PRN #20 tab 06/20/20 Allergies Allergy/AdvReac Type Severity Reaction Status Date / Time magnesium Allergy Anaphylaxis Verified 06/20/20 08:40 Review of Systems ROS Statement: Those systems with pertinent positive or pertinent negative responses have been documented in the HPI. ROS Other: All systems not noted in ROS Statement are negative. Past Medical History Past Medical History: No Reported History Additional Past Medical History / Comment(s): Severe anemia; Patient has had 7 previous vaginal deliveries History of Any Multi-Drug Resistant Organisms: None Reported Past Surgical History: No Surgical Hx Reported, Orthopedic Surgery Additional Past Surgical History / Comment(s): rt arm broken when 7 y.o. LOSS OF INFANT AT - 2019 Past Anesthesia/Blood Transfusion Reactions: No Reported Reaction Past Psychological History: No Psychological Hx Reported Smoking Status: Never smoker Past Alcohol Use History: None Reported Past Drug Use History: None Reported - Past Family History Mother History Unknown: Yes Family Medical History: Hypertension General Exam - General Exam Comments Initial Comments: 39-year-old female. Alert and oriented. Limitations: no limitations General appearance: alert, in no apparent distress Head exam: Present: atraumatic, normocephalic, normal inspection Eye exam: Present: normal appearance, PERRL, EOMI. Absent: scleral icterus, conjunctival injection, periorbital swelling ENT exam: Present: normal exam, mucous membranes moist Neck exam: Present: normal inspection. Absent: tenderness, meningismus, lymphadenopathy Respiratory exam: Present: normal lung sounds bilaterally. Absent: respiratory distress, wheezes, rales, rhonchi, stridor Cardiovascular Exam: Present: regular rate, normal rhythm, normal heart sounds. Absent: systolic murmur, diastolic murmur, rubs, gallop, clicks GI/Abdominal exam: Present: soft, tenderness (Periumbilical right lower quadrant tenderness), normal bowel sounds. Absent: distended, guarding, rebound, rigid Extremities exam: Present: normal inspection, full ROM, normal capillary refill. Absent: tenderness, pedal edema, joint swelling, calf tenderness Back exam: Present: normal inspection, full ROM Neurological exam: Present: alert, oriented X3, CN II-XII intact Psychiatric exam: Present: normal affect, normal mood Skin exam: Present: warm, dry, intact, normal color. Absent: rash Course Vital Signs 06/20/20 07:01 Temperature 97.8 F Pulse Rate 73 Respiratory 18 Rate Blood Pressure 105/70 O2 Sat by Pulse 97 Oximetry Medical Decision Making - Medical Decision Making 39-year-old female presents with 1 day of periumbilical and right-sided abdominal tenderness. Patient states that currently in the past few hours. Denies any fever or other complaints. She is resting comfortably in bed. Patient at this time has normal lab work. She had a computed tomography scan which shows a 5 cm left appearing ovarian cysts with dermoid component. 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 Advised Patient to follow-up with Dr. Haider within the next week. All questions were answered. Return parameters were discussed. - Lab Data Result diagrams: 06/20/20 08:02 06/20/20 08:02 Lab Results 06/20/20 06/20/20 06/20/20 Range/Units 08:02 08:02 08:02 WBC 7.0 (3.8-10.6) k/uL RBC 4.72 (3.80-5.40) m/uL Hgb 13.3 (11.4-16.0) gm/dL Hct 40.3 (34.0-46.0) % MCV 85.2 (80.0-100.0) fL MCH 28.1 (25.0-35.0) pg MCHC 33.0 (31.0-37.0) g/dL RDW 12.7 (11.5-15.5) % Plt Count 280 (150-450) k/uL MPV 6.8 Neutrophils % 70 % Lymphocytes % 18 % Monocytes % 6 % Eosinophils % 3 % Basophils % 1 % Neutrophils # 4.9 (1.3-7.7) k/uL Lymphocytes # 1.2 (1.0-4.8) k/uL Monocytes # 0.4 (0-1.0) k/uL Eosinophils # 0.2 (0-0.7) k/uL Basophils # 0.1 (0-0.2) k/uL PT 9.8 (9.0-12.0) sec INR 0.9 (<1.2) APTT 22.8 (22.0-30.0) sec Sodium (137-145) mmol/L Potassium (3.5-5.1) mmol/L Chloride (98-107) mmol/L Carbon Dioxide (22-30) mmol/L Anion Gap mmol/L BUN (7-17) mg/dL Creatinine (0.52-1.04) mg/dL Est GFR (CKD-EPI)AfAm (>60 ml/min/1.73 sqM) Est GFR (CKD-EPI)NonAf (>60 ml/min/1.73 sqM) Glucose (74-99) mg/dL Calcium (8.4-10.2) mg/dL Total Bilirubin (0.2-1.3) mg/dL AST (14-36) U/L ALT (4-34) U/L Alkaline Phosphatase (38-126) U/L Total Protein (6.3-8.2) g/dL Albumin (3.5-5.0) g/dL Amylase (30-110) U/L Lipase (23-300) U/L Urine Color Light Yellow Urine Appearance Clear (Clear) Urine pH 5.0 (5.0-8.0) Ur Specific [place] 1.012 (1.001-1.035) Urine Protein Negative (Negative) Urine Glucose (UA) Negative (Negative) Urine Ketones Negative (Negative) Urine Blood Negative (Negative) Urine Nitrite Negative (Negative) Urine Bilirubin Negative (Negative) Urine Urobilinogen <2.0 (<2.0) mg/dL Ur Leukocyte Esterase Moderate H (Negative) Urine RBC 2 (0-5) /hpf Urine WBC 11 H (0-5) /hpf Ur Squamous Epith Cells 4 (0-4) /hpf Urine Mucus Rare H (None) /hpf Urine HCG, Qual (Not Detectd) 06/20/20 06/20/20 Range/Units 08:02 08:02 WBC (3.8-10.6) k/uL RBC (3.80-5.40) m/uL Hgb (11.4-16.0) gm/dL Hct (34.0-46.0) % MCV (80.0-100.0) fL MCH (25.0-35.0) pg MCHC (31.0-37.0) g/dL RDW (11.5-15.5) % Plt Count (150-450) k/uL MPV Neutrophils % % Lymphocytes % % Monocytes % % Eosinophils % % Basophils % % Neutrophils # (1.3-7.7) k/uL Lymphocytes # (1.0-4.8) k/uL Monocytes # (0-1.0) k/uL Eosinophils # (0-0.7) k/uL Basophils # (0-0.2) k/uL PT (9.0-12.0) sec INR (<1.2) APTT (22.0-30.0) sec Sodium 136 L (137-145) mmol/L Potassium 4.2 (3.5-5.1) mmol/L Chloride 102 (98-107) mmol/L Carbon Dioxide 27 (22-30) mmol/L Anion Gap 7 mmol/L BUN 12 (7-17) mg/dL Creatinine 0.74 (0.52-1.04) mg/dL Est GFR (CKD-EPI)AfAm >90 (>60 ml/min/1.73 sqM) Est GFR (CKD-EPI)NonAf >90 (>60 ml/min/1.73 sqM) Glucose 101 H (74-99) mg/dL Calcium 9.6 (8.4-10.2) mg/dL Total Bilirubin 0.3 (0.2-1.3) mg/dL AST 16 (14-36) U/L ALT 8 (4-34) U/L Alkaline Phosphatase 73 (38-126) U/L Total Protein 6.9 (6.3-8.2) g/dL Albumin 4.1 (3.5-5.0) g/dL Amylase 59 (30-110) U/L Lipase 61 (23-300) U/L Urine Color Urine Appearance (Clear) Urine pH (5.0-8.0) Ur Specific [place] (1.001-1.035) Urine Protein (Negative) Urine Glucose (UA) (Negative) Urine Ketones (Negative) Urine Blood (Negative) Urine Nitrite (Negative) Urine Bilirubin (Negative) Urine Urobilinogen (<2.0) mg/dL Ur Leukocyte Esterase (Negative) Urine RBC (0-5) /hpf Urine WBC (0-5) /hpf Ur Squamous Epith Cells (0-4) /hpf Urine Mucus (None) /hpf Urine HCG, Qual Not Detected (Not Detectd) - Radiology Data Radiology results: report reviewed CT shows normal pedis. There is a 5.5 x 5.0 cm mass posterior to the uterus left in the midline which is mixed attenuation foci. May reflect ovarian dermoid. Disposition Clinical Impression: Abdominal pain, Dermoid cyst of left ovary Disposition: HOME SELF-CARE Condition: Good Instructions (If sedation given, give patient instructions): Ovarian Cyst (ED) Additional Instructions: Patient is to take medication as prescribed. Follow-up with primary care physician and [employer]IP[employer]IDE ATTACHER this week. Return if there is any fevers, severe worsening abdominal pain. Prescriptions: Ibuprofen [Motrin] 600 mg PO Q8HR PRN #20 tab PRN Reason: Pain Is patient prescribed a controlled substance at d/c from ED?: No Referrals: None,Stated [Primary Care Provider] - 1-2 days Vance Recinos DO [Doctor of Osteopathic Medicine] - 1-2 days Time of Disposition: 10:18
[2020-06-20 08:19] LABS: ALT 8 U/L (4-34); AST 16 U/L (14-36); African American GFR (CKD) >90 (>60 ml/min/1.73 sqM); Albumin 4.1 g/dL (3.5-5.0); Alkaline Phosphatase 73 U/L (38-126); Amylase 59 U/L (30-110); Anion Gap 7 mmol/L; Blood Urea Nitrogen 12 mg/dL (7-17); Calcium 9.6 mg/dL (8.4-10.2); Carbon Dioxide 27 mmol/L (22-30); Chloride 102 mmol/L (98-107); Glucose 101 mg/dL (74-99); Lipase 61 U/L (23-300); Non-African American GFR(CKD) >90 (>60 ml/min/1.73 sqM); Potassium 4.2 mmol/L (3.5-5.1); Sodium 136 mmol/L (137-145); Total Bilirubin 0.3 mg/dL (0.2-1.3); Total Protein 6.9 g/dL (6.3-8.2)
[2020-06-20 08:25] LABS: INR 0.9 (<1.2); Partial Thromboplastin Time 22.8 sec (22.0-30.0); Prothrombin Time 9.8 sec (9.0-12.0)
[2020-06-20 08:31] LABS: Appearance,Urine Clear (Clear); Bilirubin,Urine Negative (Negative); Blood,Urine Negative (Negative); Color,Urine Light Yellow; Glucose,Urine (UA) Negative (Negative); Ketones,Urine Negative (Negative); Leukocyte Esterase,Urine Moderate (Negative); Mucus,Urine Rare /hpf; Nitrite,Urine Negative (Negative); Protein,Urine Negative (Negative); RBC,Urine 2 /hpf (0-5); Specific Gravity,Urine 1.012 (1.001-1.035); Squamous Epithelial Cell,Urine 4 /hpf (0-4); Urobilinogen,Urine <2.0 mg/dL (<2.0); WBC,Urine 11 /hpf (0-5)
--- NOTE | 2020-06-20 09:49 | CT ---
EXAMINATION TYPE: CT abdomen pelvis w con DATE OF EXAM: 06/20/2020 COMPARISON: None HISTORY: Abdominal pain CT DLP: 899.2 mGycm CONTRAST: CT scan of the abdomen and pelvis is performed without Oral Contrast and with IV Contrast, patient in jected with 100 mL of Isovue 300. FINDINGS: LUNG BASES-: No visible nodule. No infiltrate. LIVER/GB: No calcified gallstones. No space occupying hepatic lesion. Biliary tree is of normal ca liber. PANCREAS: No inflammation. No distinct mass. SPLEEN: No splenic enlargement. No lesion seen. ADRENALS: No nodule. No thickening. KIDNEYS/BLADDER: No hydronephrosis. No nephrolithiasis. No distinct renal mass. Urinary bladder g rossly unremarkable. BOWEL: Normal appendix. Normal bowel caliber. No inflammation. GENITAL ORGANS: There is a 5.5 x 5.0 cm mass posterior to the uterus to the left of midline which con tains mixed attenuation and foci of fat. This may reflect an ovarian dermoid. Right ovary is unremark able. The uterus appears mildly enlarged. Endometrium is thickened. Correlate with the menstrual cycl e. LYMPH NODES: No greater than 1cm abdominal or pelvic lymph nodes are appreciated. AORTA: No significant abnormality. OSSEOUS STRUCTURES: No significant abnormality is seen. OTHER: No significant additional abnormality is seen. IMPRESSION: 1. Normal appendix. 2.There is a 5.5 x 5.0 cm mass posterior to the uterus to the left of midline which contains mixed at tenuation and foci of fat. This may reflect an ovarian dermoid.
[2020-06-20] MEDS ORDERED: traMADol 50 MG STARTER PACK 3 TAB BTL PO STA (10:20)
[2020-06-20 10:41] VITALS: BP 109/67; PULSE 69
== END 2020-06-20 10:42 | disposition home or self-care (01) ==
LOC: EC 06:56
DX: D27.1 Benign neoplasm of left ovary (principal)
CPT/HCPCS: 36415; 74177; 80053; 81001; 81025; 82150; 83690; 85025; 85610; 85730; 87086; 96361; 96374; 96375; 99284

== ENCOUNTER → 2020-07-07 | Outpatient (CLI) | payer BC, OTHER ==
[2020-07-07 10:30] LABS: African American GFR (CKD) >90 (>60 ml/min/1.73 sqM); Anion Gap 9 mmol/L; Blood Urea Nitrogen 12 mg/dL (7-17); Calcium 9.7 mg/dL (8.4-10.2); Carbon Dioxide 27 mmol/L (22-30); Chloride 102 mmol/L (98-107); Glucose 88 mg/dL (74-99); Non-African American GFR(CKD) 90 (>60 ml/min/1.73 sqM); Potassium 4.4 mmol/L (3.5-5.1); Sodium 138 mmol/L (137-145)
[2020-07-07 10:31] LABS: Basophils % (A) 0 %; Eosinophils # (A) 0.3 k/uL (0-0.7); Eosinophils % (A) 4 %; HGB 13.4 gm/dL (11.4-16.0); Lymphocytes % (A) 17 %; MCH 28.5 pg (25.0-35.0); MCHC 33.6 g/dL (31.0-37.0); Monocytes # (A) 0.3 k/uL (0-1.0); Monocytes % (A) 6 %; Neutrophils # (A) 4.1 k/uL (1.3-7.7); Neutrophils % (A) 71 %; Platelet Count 320 k/uL (150-450); RDW 12.5 % (11.5-15.5); WBC 5.7 k/uL (3.8-10.6)
== END | disposition home or self-care (01) ==
LOC: LABPAT 09:46
PROVIDERS: ATTEND Obstetrics & Gynecology
DX: Z01.818 Encounter for other preprocedural examination (principal)
CPT/HCPCS: 36415; 80048; 85025

== ENCOUNTER 2020-07-15 10:30 | Observation (INO) | payer BC, OTHER ==
[2020-07-12 10:43] VITALS: BMI 27.3
--- NOTE | 2020-07-15 08:55 | P.HPOB ---
History of Present Illness H&P Date: 07/15/20 Chief Complaint: Dermoid cyst Patient is a 39-year-old female with a 5 x 5 cm dermoid cyst on CAT scan. She has had discomfort and pain for a number of months a CAT scan revealed dermoid cyst. Discussion on type of surgery was performed with the patient, and we have opted for and explored for laparotomy with cystectomy versus oophorectomy with evaluation option lateral ovary. There is also some question as to enlarged uterus and this will be at least visualized at this time. Since she is still deciding whether not she is going to get again no other surgeries will be done and every effort to save the ovary will be made to enhance this possibility. Risks/benefits/alternatives to this procedure were discussed with the patient in detail and all questions were answered for her prior to proceeding to the operative room. Risks did include but were not limited to bleeding and infection, damage to bladder or bowel, vascular disease, nerve injuries, potential need for further surgery. Past Medical History Past Medical History: No Reported History Additional Past Medical History / Comment(s): Hx severe anemia. History of Any Multi-Drug Resistant Organisms: None Reported Past Surgical History: Orthopedic Surgery Additional Past Surgical History / Comment(s): Right arm surgery at age 7. Past Anesthesia/Blood Transfusion Reactions: No Reported Reaction Past Psychological History: No Psychological Hx Reported Smoking Status: Never smoker Past Alcohol Use History: None Reported Past Drug Use History: None Reported - Past Family History Mother History Unknown: Yes Family Medical History: Hyperlipidemia, Hypertension Father Family Medical History: Coronary Artery Disease (CAD), Hyperlipidemia, Hypertension, Renal Disease Medications and Allergies Home Medications Medication Instructions Recorded Confirmed Type Ibuprofen [Motrin] 600 mg PO BID PRN 07/12/20 07/12/20 History Allergies Allergy/AdvReac Type Severity Reaction Status Date / Time magnesium Allergy Anaphylaxis Verified 07/12/20 10:31 Exam Osteopathic Statement: *. No significant issues noted on an osteopathic structural exam other than those noted in the History and Physical/Consult. - OBG Physical Exam Breast: both: normal (no masses) Abdomen: bowel sounds normal, no diffuse tenderness, no bruit present, no g uarding noted, no hepatomegaly, no splenomegaly, no mass Vulva: both: normal Vagina: normal moisture, no discharge Cervix: no lesion, no discharge Uterus: normal size, normal contour Adnexa: both: normal Anus/Rectum: normal perianal skin, no rectal mass, no hemorrhoids, heme negative
[~2020-07-15 10:30] MED LIST: DEXAMETHASONE SOD PHOSPHATE 4 MG/ML 1 ML VIAL IV ONE; MIDAZOLAM 2 MG/2 ML VIAL IV PRN; ONDANSETRON 4 MG/2 ML VIAL IVP ONE; Pre Op ABX Message 1 EACH MISC MISCELLANE ONE
[2020-07-15] MEDS ORDERED: LIDOCAINE 1% (10MG/ML) FOR IV START INTRADERMA ONE (11:18)
[2020-07-15] MEDS: LACTATED RINGERS 1,000 ML IV SCH (11:18)
[2020-07-15] MEDS ORDERED: NEOSTIGMINE 1 MG/ML 10 ML VIAL ONE (13:02)
[2020-07-15] MEDS ORDERED: GLYCOPYRROLATE 0.2 MG/ML 2 ML VIAL ONE (13:02)
[2020-07-15] MEDS ORDERED: SUCCINYLCHOLINE CHLORIDE 100 MG/5 ML SYR IV ONE (13:02)
[2020-07-15] MEDS ORDERED: KETOROLAC 15 MG/ML 1 ML VIAL ONE (13:02)
[2020-07-15] MEDS ORDERED: ROCURONIUM 10 MG/ML (5 ML VIAL) IV ONE (13:02)
[2020-07-15] MEDS ORDERED: LIDOCAINE 1% INJ 10MG/ML (20 ML MDV) ONE (13:02)
[2020-07-15] MEDS ORDERED: fentaNYL (PF) 50 MCG/ML 2 ML AMP ONE (13:02)
[2020-07-15] MEDS ORDERED: PROPOFOL 10 MG/ML 20 ML VIAL IV ONE (13:02)
[2020-07-15] MEDS ORDERED: ACETAMINOPHEN IV (For NPO) 1,000 MG/100 ML VIAL ONE (13:02)
[2020-07-15] MEDS ORDERED: MIDAZOLAM 2 MG/2 ML VIAL ONE (13:02)
[2020-07-15] MEDS ORDERED: SODIUM CHLORIDE 0.9% 100 ML with ceFAZolin 2,000 MG IV ONE ×2 (13:15)
[2020-07-15] MEDS ORDERED: LACTATED RINGERS 1,000 ML IV ONE (13:52)
[2020-07-15] MEDS ORDERED: SIMETHICONE 80 MG CHEWABLE PO PRN (13:58)
[2020-07-15] MEDS ORDERED: NALOXONE 0.4 MG/ML 1 ML VIAL IV PRN (14:00)
--- NOTE | 2020-07-15 14:05 | P.OP ---
Date of Procedure: 07/15/20 Preoperative Diagnosis: Pain with dermoid cyst Postoperative Diagnosis: Same Procedure(s) Performed: Exploratory laparotomy with excision dermoid cyst and repair of ovary Anesthesia: VENESSA Surgeon: Vance Recinos Business Intelligence Analyst #1: Adrienne Cobb Estimated Blood Loss (ml): 20 IV fluids (ml): 600 Urine output (ml): 100 Pathology: other (Dermoid cyst) Condition: stable Disposition: floor Operative Findings: Large right 6 cm simple cyst with dermoid cyst proximal ovary Description of Procedure: Patient was taken to the operating suite where a general anesthetic was found be adequate. She was prepped and draped in the normal sterile fashion and placed in the dorsal supine position. Initially a mini Pfannenstiel skin incision was made and this incision was carried through to the underlying layer of the fascia second knife. Fascia was then nicked in the midline and this opening was extended laterally with Braga scissors. Superior and inferior aspect of this incision were then grasped tented up and bluntly and sharply dissected off the rectus muscles. Rectus muscles were then divided the midline and blunt dissection the peritoneum was done. Patient was then placed in Trendelenburg position and bowel was packed out of the operative field. Inspection of the pelvis was made. Left ovary was elevated and this large simple cyst was noted but no clear evidence of a dermoid initially was noted. It was set aside uterus was then evaluated and so was posterior cul-de-sac these were normal. Right ovary was also evaluated and appeared normal. Left ovary again was paid a ttention to at this time. An incision in the wall the simple cyst was made and the cyst was drained. In palpating the ovary proximal to the large cyst there was approximately 2 cm rubbery mass that was suspected to be where the dermoid was. It was therefore grasped with Allis clamps elevated and then using Metzenbaum scissors it was dissected out of the ovary. At one point he did break and fat and hair were noted in the substance. Fortunately we had packed the ovary completely off with lap sponges and none of the material went into the abdomen. Once the mass was excised and sent to pathology with no bleeding noted across the ovary it was closed with 3-0 Vicryl. Ovary was then replaced into the abdomen and no bleeding is noted there is no areas of concern therefore peritoneum was grasped elevated and closed with 0 Vicryl suture in a running fashion. Fascial layer was then closed with 0 Vicryl suture in a running fashion. One layer of 3-0 Vicryl placed deep subcuticular tissues to reapproximate skin and close the space. Skin was then closed with 3-0 Vicryl subcuticularly. Sponge, lap, needle counts were all correct 2. Patient was then taken to the recovery room in stable and satisfactory condition.
[2020-07-15] MEDS: ONDANSETRON 4 MG/2 ML VIAL IVP PRN (14:34)
[2020-07-15] MEDS: HYDROmorphone 0.5 MG/0.5 ML SYRINGE IVP PRN ×4 (14:34→14:51)
[2020-07-15] MEDS ORDERED: HYDROmorphone PCA 10 MG/50 ML BAG IV PRN (15:00)
[2020-07-15] MEDS: KETOROLAC 15 MG/ML 1 ML VIAL IVP PRN (20:00)
[2020-07-15] MEDS: SENNOSIDES-DOCUSATE SODIUM 1 EACH TAB PO SCH (23:02)
[2020-07-16] MEDS: KETOROLAC 15 MG/ML 1 ML VIAL IVP PRN (02:09)
[2020-07-16] MEDS: ONDANSETRON 4 MG/2 ML VIAL IVP PRN (02:09)
[2020-07-16] MEDS: LACTATED RINGERS 1,000 ML IV SCH (06:45)
[2020-07-16] MEDS ORDERED: HYDROcodone/APAP 5-325MG 1 EACH TAB PO PRN (08:42)
--- NOTE | 2020-07-16 08:44 | P.PN ---
Subjective Progress Note Date: 07/16/20 Principal diagnosis: Patient seen and evaluated postop. She is able to ambulate. She does have cecil nausea this morning. We'll discontinue the UX INFORMATION ARCHITECT and switch her over to by mouth pain medication and trying to advance her diet as the day progresses. The goal is to try and get her discharged home later today. However, if she is unable to tolerate foods and/or her nausea or pain or above a tolerable limit for her and we'll plan to keep her until tomorrow. All other questions are answered for her at this time. Her vital signs are stable and she is afebrile. Objective - Vital Signs Vital signs: Vital Signs Temp 96.9 F L 07/16/20 04:00 Pulse 86 07/16/20 04:00 Resp 16 07/16/20 04:00 BP 109/55 07/16/20 04:00 Pulse Ox 97 07/16/20 04:00 Intake & Output 07/15/20 07/16/20 07/16/20 18:59 06:59 18:59 Intake Total 1500 Output Total 120 600 Balance 1380 -600 Weight 64.1 kg Intake: IV 1500 Output: Urine 100 600 Estimated Blood Loss 20 Other: # Voids 1 - Exam Vital signs stable, heart regular, lungs clear, extremities without pain. Abdomen soft and her incision is clean dry and intact.
[2020-07-16] MEDS: IBUPROFEN 600 MG TAB PO SCH ×2 (10:21→22:34)
[2020-07-16] MEDS: HYDROcodone/APAP 5-325MG 1 EACH TAB PO PRN ×3 (13:42→23:35)
--- NOTE | 2020-07-16 15:17 | P.PN ---
Progress Note - Text Progress Note Date: 07/16/20 Patient seen and evaluated again this afternoon. She does not feel quite ready to go home as she still has a little bit of pain and nausea. She is improved over this morning but will plan to keep her until tomorrow. Prescriptions for pain medicine up in 4 to the pharmacy. She'll remove the rest of her dressing later tonight and will follow up with me in 1 week. Otherwise she is stable at this time.
[2020-07-16] MEDS: SENNOSIDES-DOCUSATE SODIUM 1 EACH TAB PO SCH (22:34)
[2020-07-17] MEDS: HYDROcodone/APAP 5-325MG 1 EACH TAB PO PRN ×2 (04:08→10:21)
[2020-07-17] MEDS: IBUPROFEN 600 MG TAB PO SCH (07:52)
[2020-07-17 08:23] VITALS: BP 113/73; PULSE 78; RESP 16; TEMP 97.8
[2020-07-17] MEDS: SENNOSIDES-DOCUSATE SODIUM 1 EACH TAB PO SCH (09:26)
--- NOTE | 2020-07-17 11:13 | P.DS ---
Providers Date of admission: 07/15/20 22:48 Expected date of discharge: 07/17/20 Attending physician: Vance Recinos Primary care physician: Stated None Hospital Course: Please see history and physical and dictated operative report for details of patient's admission. Will stop the patient is doing well. Her pain is better controlled now. She is passing flatus but no bowel movement yet. She is urinating without difficulty. Spotting has stopped. Vital signs are stable. Abdomen is soft with positive bowel sounds 4. Incision is clean dry and intact with Steri-Strips in place. Extremities show negative Homans. Impression is status post exploratory laparotomy with removal of dermoid cyst. Plan is to discharge home today. Routine postoperative instructions are given. She is advised to follow up in the office with Dr. Recinos next week. He has already sent in prescriptions for her. She is advised to call the office she has any further questions or concerns prior to her postoperative appointment. Procedures: Exploratory laparotomy with excision of left ovarian dermoid cyst Patient Condition at Discharge: Stable Plan - Discharge Summary Discharge Rx Participant: Yes New Discharge Prescriptions: New HYDROcodone/APAP 5-325MG [[place] 5-325] 1 tab PO Q4HR PRN #30 tab PRN Reason: Pain Ibuprofen [Motrin] 600 mg PO Q6HR PRN #30 tab PRN Reason: Pain No Action Ibuprofen [Motrin] 600 mg PO BID PRN PRN Reason: Pain Discharge Medication List Ibuprofen [Motrin] 600 mg PO BID PRN 07/12/20 [History] HYDROcodone/APAP 5-325MG [[place] 5-325] 1 tab PO Q4HR PRN #30 tab 07/16/20 [Rx] Ibuprofen [Motrin] 600 mg PO Q6HR PRN #30 tab 07/16/20 [Rx] Follow up Appointment(s)/Referral(s): Vance Recinos DO [Doctor of Osteopathic Medicine] - 1 Week Activity/Diet/Wound Care/Special Instructions: No heavy lifting, limit stairs and driving, and pelvic rest. If any high temperatures, heavy bleeding, or severe pain call my office Discharge Disposition: HOME SELF-CARE
== END 2020-07-17 11:30 | disposition home or self-care (01) ==
LOC: OR 10:30 → 4FBP 15:05 → OR 22:48
PROVIDERS: ADMIT Obstetrics & Gynecology; ATTEND Obstetrics & Gynecology
DX: D27.1 Benign neoplasm of left ovary (principal); R11.0 Nausea; D64.9 Anemia, unspecified; Z79.1 Long term (current) use of non-steroidal anti-inflammatories (NSAID); Z88.8 Allergy status to other drugs, medicaments and biological substances; Z87.892 Personal history of anaphylaxis; Z87.81 Personal history of (healed) traumatic fracture; Z82.49 Family history of ischemic heart disease and other diseases of the circulatory system; Z83.49 Family history of other endocrine, nutritional and metabolic diseases; Z84.1 Family history of disorders of kidney and ureter
CPT/HCPCS: 81025; 88305; 87635; 58925; G0378 ×3; J2250; J1100; J2710; J2405 ×2; J0690; J2001; J3010; J0131; J1885 ×2; J0330; J2704; J1170 ×2; 86850; 86900; 86901